=== PATIENT | female | born 1950 | race Caucasian/White ===

== ENCOUNTER → 2019-12-05 17:12 | Outpatient (CLI) | payer MEDICARE, BC, SELFPAY ==
--- NOTE | ~2019-12-05 | DEXA_ITS ---
Bone Density Report Name: Megan Montenegro Age: 69 Sex: Female Ethnicity: White Date of : 1950 Indication: postmenopausal; screening for osteoporosis; height loss; prior fracture; hysterectomy; Referring Provider: JULIA, EVE Alvarado Study: Bone densitometry was performed. Exam Date: December 05, 2019 Accession number: [id number] Bone Density: Region BMD T-score Z-score Classification AP Spine (L1-L4) 0.991 -0.5 1.6 Normal Femoral Neck (Left) 0.715 -1.2 0.6 Osteopenia Total Hip (Left) 0.834 -0.9 0.6 Normal Femoral Neck (Right) 0.687 -1.5 0.3 Osteopenia Total Hip (Right) 0.845 -0.8 0.7 Normal Total Hip Mean 0.840 -0.9 0.7 Normal World Health Organization criteria for BMD impression classify patients as: Normal (T-score at or above -1.0), Osteopenia (T-score between -1.0 and -2.5), or Osteoporosis (T-score at or below -2.5). 10-year Fracture Risk: FRAX not reported because: Prior hip or vertebral fracture Previous Exams: Region Exam Age BMD T-score BMD Change BMD Change Date g/cm2 vs Baseline vs Previous AP Spine(L1-L4) 12/05/2019 69 0.991 -0.5 0.052* 0.040 07/26/2017 67 0.951 -0.9 0.012 -0.009 12/30/2014 64 0.959 -0.8 0.021 0.021 09/29/2008 58 0.939 -1.0 Total Hip(Left) 12/05/2019 69 0.834 -0.9 -0.112* -0.059 07/26/2017 67 0.893 -0.4 -0.052 0.000 12/30/2014 64 0.893 -0.4 -0.052 -0.052 09/29/2008 58 0.946 0.0 Total Hip(Right) 12/05/2019 69 0.845 -0.8 -0.114* -0.019 07/26/2017 67 0.865 -0.6 -0.095 -0.034* 12/30/2014 64 0.898 -0.4 -0.061 -0.061 09/29/2008 58 0.959 0.1 *Denotes significance at 95% confidence level, LSC for AP Spine = 0.022 g/cm2, LSC for Total Hip = 0.027 g/cm2 Clinical Information Provided by Patient: Have had a previous hip or vertebral fracture Has had a low trauma fracture Has used the following medications: Vitamin D, Calcium Has the following medical conditions: Hysterectomy Patient maximum height was 62 Menopause Age: 50 Drinks caffeinated beverages Onset of menses at age 12 Number of children 3 Missed period for more than 6 months in a row Impression: The patient has low bone mass, based on the Right Femoral Neck T-score. The patient has risk factors, including: previous fracture. No significant bone loss
--- NOTE | ~2019-12-05 | MM_ITS ---
EXAMINATION: MM screening kari BI w joel HISTORY: Screening mammogram TECHNIQUE: Craniocaudal and mediolateral oblique 3-D tomosynthesis images were obtained and synthetic 2-D images were generated. CAD analysis was submitted and interpreted. COMPARISON: 11/08/2018, 07/26/2017, 10/09/2014 bilateral digital screening mammogram examinations BREAST PARENCHYMAL COMPOSITION: There are scattered areas of fibroglandular density. FINDINGS: Stable mild fibroglandular asymmetry. There is no evidence of reproducible suspicious mass, calcification, or architectural distortion to suggest malignancy in either breast. There has been no suspicious interval change. IMPRESSION: 1. No mammographic evidence of malignancy. 2. Recommend routine screening mammography in one year. BI-RADS Category 2: Benign finding(s). Reviewed, dictated and finalized at location A.
== END ==
PROVIDERS: Visit Provider Internal Medicine
DX: Z12.31 Encounter for screening mammogram for malignant neoplasm of breast (principal); Z78.0 Asymptomatic menopausal state; M85.89 Other specified disorders of bone density and structure, multiple sites
CPT/HCPCS: 77063; 77067; 77080

== ENCOUNTER → 2021-03-08 10:35 | Outpatient (CLI) | payer MEDICARE, BC, SELFPAY ==
--- NOTE | ~2021-03-08 | MM_ITS ---
EXAMINATION: MM screening kari BI w joel HISTORY: Screening TECHNIQUE: Craniocaudal and mediolateral oblique 3-D tomosynthesis images were obtained and synthetic 2-D images were generated. CAD analysis was submitted and interpreted. COMPARISON: Comparison to multiple prior studies sequentially, with oldest reviewed study dated 10/09. BREAST PARENCHYMAL COMPOSITION: There are scattered areas of fibroglandular density. FINDINGS: There is no evidence of suspicious mass, calcification, or architectural distortion to sugg est malignancy in either breast. There has been no suspicious interval change. IMPRESSION: 1. No mammographic evidence of malignancy. 2. Recommend routine screening mammography in one year. BI-RADS Category 1: Negative Reviewed, dictated and finalized at location A.
== END ==
PROVIDERS: PCP Internal Medicine; Visit Provider Internal Medicine
DX: Z12.31 Encounter for screening mammogram for malignant neoplasm of breast (principal)
CPT/HCPCS: 77063; 77067

== ENCOUNTER → 2022-07-29 10:26 | Outpatient (CLI) | payer MEDICARE, BC, SELFPAY ==
--- NOTE | ~2022-07-29 | DEXA_ITS ---
Bone Density Report Name: AUBRIE DIOR Age: 72 Sex: Female Ethnicity: White Date of : 1950 Indication: postmenopausal; screening for osteoporosis; height loss; prior fracture; hysterectomy; Referring Provider: JULIA, EVE Alvarado Study: Bone densitometry was performed. Exam Date: July 29, 2022 Accession number: [id number] Bone Density: Region BMD T-score Z-score Classification AP Spine (L1-L4) 0.960 -0.8 1.4 Normal Femoral Neck (Left) 0.696 -1.4 0.5 Osteopenia Total Hip (Left) 0.771 -1.4 0.2 Osteopenia Femoral Neck (Right) 0.687 -1.5 0.5 Osteopenia Total Hip (Right) 0.801 -1.2 0.5 Osteopenia Total Hip Mean 0.786 -1.3 0.4 Osteopenia World Health Organization criteria for BMD impression classify patients as: Normal (T-score at or above -1.0), Osteopenia (T-score between -1.0 and -2.5), or Osteoporosis (T-score at or below -2.5). 10-year Fracture Risk: FRAX not reported because: Prior hip or vertebral fracture Previous Exams: Region Exam Age BMD T-score BMD Change BMD Change Date g/cm2 vs Baseline vs Previous AP Spine(L1-L4) 07/29/2022 72 0.960 -0.8 0.021 -0.031 12/05/2019 69 0.991 -0.5 0.052* 0.040 07/26/2017 67 0.951 -0.9 0.012 -0.009 12/30/2014 64 0.959 -0.8 0.021 0.021 09/29/2008 58 0.939 -1.0 Total Hip(Left) 07/29/2022 72 0.771 -1.4 -0.175 -0.063 12/05/2019 69 0.834 -0.9 -0.112* -0.059 07/26/2017 67 0.893 -0.4 -0.052 0.000 12/30/2014 64 0.893 -0.4 -0.052 -0.052 09/29/2008 58 0.946 0.0 Total Hip(Right) 07/29/2022 72 0.801 -1.2 -0.158 -0.044 12/05/2019 69 0.845 -0.8 -0.114* -0.019 07/26/2017 67 0.865 -0.6 -0.095 -0.034* 12/30/2014 64 0.898 -0.4 -0.061 -0.061 09/29/2008 58 0.959 0.1 *Denotes significance at 95% confidence level, LSC for AP Spine = 0.022 g/cm2, LSC for Total Hip = 0.027 g/cm2 Clinical Information Provided by Patient: Have had a previous hip or vertebral fracture Has had a low trauma fracture Has used the following medications: Vitamin D, Calcium Has the following medical conditions: Hysterectomy Patient maximum height was 62.0 Menopause Age: 50 Drinks caffeinated beverages Onset of menses at age 12 Number of children 3 Missed period for more than 6 months in a row
--- NOTE | ~2022-07-29 | MM_ITS ---
EXAMINATION: MM screening kari BI w joel HISTORY: Screening TECHNIQUE: Craniocaudal and mediolateral oblique 3-D tomosynthesis images were obtained and synthetic 2-D images were generated. CAD analysis was submitted and interpreted. COMPARISON: Comparison to multiple prior studies sequentially, with oldest reviewed study dated 10/09. BREAST PARENCHYMAL COMPOSITION: There are scattered areas of fibroglandular density. FINDINGS: There is no evidence of suspicious mass, calcification, or architectural distortion to sugg est malignancy in either breast. There has been no suspicious interval change. IMPRESSION: 1. No mammographic evidence of malignancy. 2. Recommend routine screening mammography in one year. BI-RADS Category 1: Negative Reviewed, dictated and finalized at location A. ER ASSISTANT
== END ==
PROVIDERS: PCP Internal Medicine; Visit Provider Internal Medicine
DX: Z12.31 Encounter for screening mammogram for malignant neoplasm of breast (principal); Z78.0 Asymptomatic menopausal state; M85.89 Other specified disorders of bone density and structure, multiple sites
CPT/HCPCS: 77063; 77067; 77080

== ENCOUNTER 2022-12-16 12:51 | Emergency (ER) | payer MEDICARE, BC, SELFPAY ==
--- NOTE | ~2022-12-16 | CT_ITS ---
EXAMINATION: CT abdomen pelvis w con DATE: 12/16/2022 18:15 INDICATION: Intermittent right upper quadrant abdominal pain, nausea and vomiting. Elevated serum lip ase. TECHNIQUE: Computed tomography (CT) of the abdomen and pelvis was performed with 100 CC Omnipaque 350 intravenous contrast. Automated exposure control and iterative reconstruction technique were employe d. Exam dose: 1076.34 mGy-cm total exam DLP. COMPARISON: None. FINDINGS: Minimal dependent atelectasis of the lower lobes. Mild cardiomegaly. No pericardial or pleu ral effusion. Small sliding hiatal hernia. Multiple hepatic and splenic calcified granulomas. No hepatic, splenic, pancreatic, and adrenal space -occupying mass lesion. Spleen measures up to 12 cm vertical dimension, within upper normal range. 3.7 cm lower pole right renal cyst. 8 mm mid right renal cyst. The gallbladder is present. No bile du ct or pancreatic duct dilatation. No urinary tract calculus or hydroureteronephrosis. Normal caliber and mild atherosclerotic calcification of the abdominal aorta. No intraperitoneal or r etroperitoneal or pelvic mass lesion or adenopathy or ascites. The urinary bladder and uterus are unr emarkable. Status post appendectomy. No bowel obstruction, bowel wall thickening, pneumatosis or intraperitoneal free air is detected. Small fat-containing umbilical hernia. Moderate burst fracture deformity of L1, likely chronic. Degenerative changes of the included lower t horacic and lumbar spine including degenerative changes apophyseal joints with associated grade 1 ant erolisthesis at L4-5. 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 Normal pancreas on CT does not preclude the possibility of pancreatitis. Right renal cysts Chronic burst fracture deformity of L1 Degenerative changes of the thoracic and lumbar spine Reviewed, dictated and finalized at Location A. Reviewed, dictated and finalized at location A. 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 Normal pancreas on CT does not preclude the possib ility of pancreatitis. Right renal cysts Chronic burst fracture deformity of L1 Degenerative changes of the thoracic and lumbar spine
[2022-12-16 12:53] VITALS: BP 189/91; PULSE 96; RESP 20; TEMP 36.7; O2SAT 100
[2022-12-16 13:13] LABS: Basophils Percent Auto 0.3 % (0.2-1.2); Eosinophils Absolute Auto 0.1 K/mm3 (0-0.3); Eosinophils Percent Auto 1.4 % (0-4.4); Hematocrit 39.4 % (37.0-47.0); Hemoglobin 12.6 g/dL (12.0-15.0); Immature Granulocyte Absolute 0.04 K/mm3 (0.00-0.031); Immature Granulocyte Percent A 0.5 % (0-0.5); Lymphocytes Percent Auto 30.8 % (18.3-44.2); Mean Corpuscular Hemoglobin 30.2 pg (26-34); Mean Corpuscular Volume 94.5 fl (80-100); Mean Platelet Volume 9.6 fl (7.4-10.4); Monocytes Absolute Auto 0.6 K/mm3 (0.1-0.6); Monocytes Percent Auto 7.7 % (2.6-8.5); Neutrophils Absolute Auto 4.6 K/mm3 (1.3-6.7); Neutrophils Percent Auto 59.3 % (45.5-73.1); Platelet Count Result 270 k/mm3 (150-375); Red Blood Count 4.17 M/mm3 (4.2-5.4); Red Cell Distribution Width 13.7 % (11.5-14.5); White Blood Count 7.8 K/mm3 (4.5-10.0)
[2022-12-16 13:25] LABS: Alanine Aminotransferase 19 U/L (6-35); Albumin Level 4.9 g/dL (3.5-5.1); Alkaline Phosphatase 71 U/L (38-126); Anion Gap 12 mmol/L (8-16); Aspartate Amino Transferase 26 U/L (14-36); Bilirubin,Total 0.5 mg/dL (0.2-1.3); Blood Urea Nitrogen 27 mg/dL (7-17); Calcium 9.3 mg/dL (8.4-10.2); Carbon Dioxide 26 mmol/L (22-30); Chloride 100 mmol/L (98-107); Estimated CRCL calculation 43 ml/min; Estimated Glomerular Filt Rate 49; Glucose 134 mg/dL (65-110); Lipase 354 U/L (23-300); Potassium 3.6 mmol/L (3.4-5.0); Sodium 138 mmol/L (137-145)
[2022-12-16 13:37] LABS: Appearance Urine Turbid (Clear); Bilirubin Urine Negative (Negative); Blood Urine Negative (Negative); Color Urine Yellow (Yellow); Glucose Urine UA Negative (Negative); Ketones Urine Negative (Negative); Leukocyte Esterase Ur 1+ LEU/UL (Negative); Nitrate Urine Negative (Negative); Protein Urine Negative (Negative); Specific Grav Ur 1.011 (1.001-1.035)
[2022-12-16 14:03] LABS: RBC Urine None seen /hpf (0-2)
[2022-12-16 14:04] LABS: Bacteria Urine 2+ /hpf; Mucus Urine Moderate /lpf; Squamous Epithelial Cell Urine Few /hpf (Few)
[2022-12-16 14:05] LABS: Add Urine Microscopic? YES
--- NOTE | 2022-12-16 16:53 | ED.ABDPAIN ---
HPI - Abdominal Pain General Chief Complaint: Abdominal Pain Stated Complaint: abd pain Time Seen by Provider: 12/16/22 15:40 Source: patient Mode of arrival: ambulatory Limitations: no limitations History of Present Illness HPI narrative: Patient is a 72 y/o female who presents to the ED with c/o abnormal labs. Patient reports having intermittent right upper quadrant abdominal pain for the last several months. She states the pain occurs at random times, no known aggravating or alleviating factors to the pain. She has not required anything for the pain. She had a routine appointment with her primary care doctor today and informed him of the pain. He had outpatient blood work done and her lipase was noted to be elevated, so she was referred to the ED for further evaluation. Patient reported having episode of pain yesterday, but denied any pain today. She has had intermittent episodes of vomiting as well over the last few months, but denied any pain in the last 1 week. She does also report having urinary frequency, but denies dysuria, hematuria, diarrhea, constipation, fevers, chest pain, difficulty breathing. Related Data Allergies Allergy/AdvReac Type Severity Reaction Status Date / Time Penicillins Allergy Unknown Verified 05/04/16 13:41 Sulfa (Sulfonamide Allergy Unknown Verified 05/04/16 13:41 Antibiotics) 1 PCN 2 SULFA Allergy Unknown Uncoded 03/04/03 12:42 NKFA Allergy Unknown Uncoded 03/04/03 12:42 Review of Systems Review of Systems: CONSTITUTIONAL: Denies fever, chills, or sweats. CARDIOVASCULAR: Denies chest pain. RESPIRATORY: Denies dyspnea. GASTROINTESTINAL: See HPI. GENITOURINARY: See HPI. All systems reviewed & are unremarkable except as noted in HPI and below PMFSH Past Medical History Medical History (Updated 12/16/22 @ 19:18 by Aurelia Don PA-C) Diabetes GERD (gastroesophageal reflux disease) HLD (hyperlipidemia) HTN (hypertension) Surgical History Surgical History (Updated 12/16/22 @ 17:00 by Aurelia Don PA-C) No pertinent past surgical history Social History Social History (Updated 12/16/22 @ 17:00 by Aurelia Don PA-C) Smoking status: Never smoker Exam Narrative: GENERAL: Well appearing, obese, non-toxic, in no acute distress. HEAD: Normocephalic, atraumatic. NECK: Supple. No adenopathy, no masses. RESPIRATORY: Airway patent, respirations nonlabored. Clear to auscultation bilaterally, no rales, rhonchi, wheezing. CARDIOVASCULAR: Regular rate and rhythm without murmurs, rubs, or gallops. Radial pulses 2+ and equal bilaterally. ABDOMINAL: Soft, very minimal discomfort in epigastric/RUQ region, nondistended, no hepatosplenomegaly. Normoactive BS. MUSCULOSKELETAL: Moves all extremities. Strength/ROM intact without gross deformities. SKIN: Warm, dry, normal color. No rashes. NEURO: A&O X3. Speech clear. Cranial nerves II-XII grossly intact. Steady gait. No ataxic movements. PSYCHIATRIC: Appropriate mood and affect. Normal interaction. Course Vital Signs Vital signs: Vital Signs Temperature 98.1 F 12/16/22 12:53 Pulse Rate 96 12/16/22 12:53 Respiratory Rate 20 12/16/22 12:53 Blood Pressure 189/91 H 12/16/22 12:53 Pulse Oximetry 100 12/16/22 12:53 Oxygen Delivery Room Air 12/16/22 12:53 Temperature 98.1 F 12/16/22 12:53 Pulse Rate 79 12/16/22 19:00 Respiratory Rate 14 12/16/22 19:00 Blood Pressure 130/90 12/16/22 19:00 Pulse Oximetry 97 12/16/22 19:00 Oxygen Delivery Room Air 12/16/22 12:53 MDM - Abdominal Pain MDM Narrative Medical decision making narrative: Patient presented to ED with report of intermittent right upper quadrant abdominal pain for the last several months, intermittent vomiting - not necessarily associated with pain. Sent from PCPs office today due to elevated lipase on outpatient labs. Patient's exam unremarkable here. No significant abdominal tenderness on exam. Vitals stab
[2022-12-16 17:47] VITALS: BP 166/98; PULSE 86; RESP 12; O2SAT 98
[2022-12-16 18:18] VITALS: BP 145/82; PULSE 82; RESP 14; O2SAT 98
[2022-12-16 19:00] VITALS: BP 130/90; PULSE 79; RESP 14; O2SAT 97
[2022-12-16] MEDS: CEPHALEXIN 500 MG CAPSULE PO (19:41)
[2022-12-16 19:49] VITALS: BP 153/81; PULSE 81; RESP 16; O2SAT 97
== END 2022-12-16 19:50 | disposition home or self-care (01) ==
PROVIDERS: Emergency Medicine; Emergency Provider Physician Assistant; PCP Internal Medicine
DX: N30.00 Acute cystitis without hematuria (principal); R10.11 Right upper quadrant pain; E11.9 Type 2 diabetes mellitus without complications; E78.5 Hyperlipidemia, unspecified; I10 Essential (primary) hypertension; K21.9 Gastro-esophageal reflux disease without esophagitis; I51.7 Cardiomegaly; K44.9 Diaphragmatic hernia without obstruction or gangrene; N28.1 Cyst of kidney, acquired
CPT/HCPCS: 36415; 74177; 80053; 81001; 83690; 85025; 87086; 87088; 99284; A9270; Q9967

== ENCOUNTER → 2022-12-23 12:31 | Outpatient (CLI) | payer MEDICARE, BC, SELFPAY ==
--- NOTE | ~2022-12-23 | US_ITS ---
US right upper quadrant INDICATION: Abdominal pain PROCEDURE: Realtime right upper abdominal ultrasound. COMPARISON: No prior studies for comparison. FINDINGS: The pancreas is normal without focal mass or pancreatic ductal dilation. Liver echotexture is normal without focal mass or intrahepatic biliary dilatation. There is normal directional flow i n the portal vein. The gallbladder is normal without stones, gallbladder wall thickening or pericholecystic fluid. Comm on bile duct measures 5.6 mm. No sonographic Mccarty's sign. There is a right renal cyst measuring 3. 7 cm. IMPRESSION: 1: Unremarkable limited abdominal ultrasound. Reviewed, dictated and finalized at location B.
== END ==
PROVIDERS: PCP Internal Medicine; Visit Provider Internal Medicine
DX: R10.9 Unspecified abdominal pain (principal)
CPT/HCPCS: 76705

== ENCOUNTER 2024-04-04 15:16 | Outpatient (CLI) | payer MEDICARE, BC, SELFPAY ==
--- NOTE | ~2024-04-04 | XR_ITS ---
EXAM: XR shoulder RT min 2V DATE: 04/04/2024 15:27 HISTORY: fall 24 increasing pain since fall . COMPARISON: None available. FINDINGS: Decreased mineralization. No fracture or dislocation. No lytic or blastic lesion. Mild deg enerative change at the AC joint and glenohumeral joint. No erosion or periosteal change. Soft tissue s within normal limits. IMPRESSION: Mild polyarticular right shoulder osteoarthritis. No acute osseous finding. Reviewed, dictated and finalized at location K.
== END 2024-04-04 15:17 ==
PROVIDERS: PCP Internal Medicine; Visit Provider Internal Medicine
DX: M19.011 Primary osteoarthritis, right shoulder (principal)
CPT/HCPCS: 73030

== ENCOUNTER 2024-08-27 15:08 | Outpatient (CLI) | payer MEDICARE, BC, SELFPAY ==
--- NOTE | ~2024-08-27 | MM_ITS ---
EXAMINATION: MM screening kari BI w joel HISTORY: Screening TECHNIQUE: Craniocaudal and mediolateral oblique 3-D tomosynthesis images were obtained and synthetic 2-D images were generated. CAD analysis was submitted and interpreted. COMPARISON: Comparison to multiple prior studies sequentially, with oldest reviewed study dated 07/12. BREAST PARENCHYMAL COMPOSITION: Not dense: There are scattered areas of fibroglandular density. FINDINGS: There is no evidence of suspicious mass, calcification, or architectural distortion to sugg est malignancy in either breast. There has been no suspicious interval change. IMPRESSION: 1. No mammographic evidence of malignancy. 2. Recommend routine screening mammography in one year. BI-RADS Category 1: Negative Reviewed, dictated and finalized at location B. [facility] [employer]
== END 2024-08-27 15:09 | disposition home or self-care (01) ==
PROVIDERS: PCP Internal Medicine; Visit Provider Internal Medicine
DX: Z12.31 Encounter for screening mammogram for malignant neoplasm of breast (principal)
CPT/HCPCS: 77063; 77067

== ENCOUNTER 2024-11-19 08:43 | Outpatient (CLI) | payer MEDICARE, BC, SELFPAY ==
--- NOTE | ~2024-11-19 | DEXA_ITS ---
Bone Density Report Name: AUBRIE STEWART Age: 74 Sex: Female Ethnicity: White Date of : 1950 Indication: postmenopausal; screening for osteoporosis; prior fracture; hysterectomy; Referring Provider: JULIA, EVE Alvarado Study: Bone densitometry was performed. Exam Date: November 19, 2024 Accession number: [id number] Bone Density: Region BMD T-score Z-score Classification AP Spine(L1-L4) 0.987 -0.5 1.8 Normal Femoral Neck (Left) 0.577 -2.4 -0.4 Osteopenia Total Hip (Left) 0.872 -0.6 1.2 Normal Femoral Neck (Right) 0.607 -2.2 -0.1 Osteopenia Total Hip (Right) 0.857 -0.7 1.1 Normal Total Hip Mean 0.864 -0.7 1.2 Normal World Health Organization criteria for BMD impression classify patients as: Normal (T-score at or above -1.0), Osteopenia (T-score between -1.0 and -2.5), or Osteoporosis (T-score at or below -2.5). 10-year Fracture Risk: FRAX not reported because: Prior hip or vertebral fracture Treated for osteoporosis Clinical Information Provided by Patient: Have had a previous hip or vertebral fracture Has had a low trauma fracture Is being treated for osteoporosis Has used the following medications: Fosamax (i.e. alendronate), Vitamin D, Calcium Has the following medical conditions: Hysterectomy Patient maximum height was 62 Menopause Age: 50 No regular weight bearing exercise Drinks caffeinated beverages Onset of menses at age 12 Number of children 3 Missed period for more than 6 months in a row Impression: The patient has low bone mass, based on the Left Femoral Neck T-score. The patient has risk factors, including: previous fracture. Discussion: It is important to ask patients whether they are taking their medications and to encourage continued and appropriate compliance with their osteoporosis therapies to reduce fracture risk. It is also important to review their risk factors and encourage appropriate calcium and vitamin D intakes, exercise, fall prevention and other lifestyle measures. Follow-Up: Consider a repeat BMD and Vertebral Fracture Assessment (VFA) exam in 2 years or sooner if medically necessary, to reassess this patient's status. Reported by: DEMETRIUS on 11/19/2024 9:21:00 AM. Reviewed, dictated and finalized at manfred PAREDES
--- OUTSIDE RECORDS SUMMARY | 2024-11-19 09:07 | XMS_ITS | Continuity of Care Document ---
Author Name [facility] Organization [facility] Care Team Providers Care Slack Line Yarder Name Role Phone [facility] Unavailable Unavailable Problems Combined list of problems from Department of [facility] and [facility] facilities. It does not include entries that were removed or entered in error. Problem Status Onset Date Problem Type Date of Resolution Comments Source Diagnosis: ICD-10-CM Z74.1 Need for assistance with personal care Active Diagnosis [facility] Diagnosis: ICD-10-CM Z65.9 Problem related to unspecified psychosocial circumstances Active Diagnosis [facility] Encounters Combined list of: 1) Encounters from [facility] of [facility] facilities going backup to the last 18 months, not all [place] inpatient encounters are included; 2) Encounters from the [facility] facilities going backup to 280 months. Location Location Details Encounter Type Encounter Number Reason For Visit Attending Provider ADM Date DC Date Status Disposition Source [facility] Outpatient Encounter [id number] 07/01 [facility] PT EDUCATION NOC INDIVID [id number] Diagnos is: ICD-10- CM Z65.9 Problem related to unspeci fied psychos ocial circums SEVEN Vera 07/09 [facility] PROGRAM INTAKE ASSESSMENT [id number] Diagnos is: ICD-10- CM Z74.1 Need for assista nce with persona EMRE Sherwood 08/06 [facility] Outpatient Encounter [id number] MARISSA BELLO 08/16 [facility]
--- OUTSIDE RECORDS SUMMARY | 2024-11-19 09:07 | XMS_ITS | Clinical Summary ---
Author Organization [facility] Address [address] [place] [address] Phone Care Team Providers Care Can Washer Name Role Phone Rob Paredes MD Primary Care Provider [phone] Maribell Coyne APRN, MAIL LIST LIBRARIAN Unavailable Allergies Active Allergy Reactions Criticality Noted Date Comments Penicillins Rash 08/05/2024 Sulfate Rash 08/05/2024 Medications alendronate (FOSAMAX) 70 MG Tablet Take 70 mg by mouth every 7 days. Active atorvastatin (LIPITOR) 20 MG Tablet Take 20 mg by mouth daily. Active loratadine (Claritin) 10 MG Tablet Take 10 mg by mouth daily. Active losartan potassium-hydroc hlorothiazide (HYZAAR) 100-25 MG Tablet Take 1 Tablet by mouth daily. 12.5 tab Active metFORMIN (GLUCOPHAGE) 1000 MG Tablet Take 1,000 mg by mouth 2 times daily (with meals). Active pantoprazole (PROTONIX) 40 MG Tablet Delayed Response Take 40 mg by mouth daily. needed Active traMADol (ULTRAM) 50 MG Tablet Take 50 mg by mouth every 6 hours as needed for Headaches. Active calcium 600 MG Tablet Take 600 mg by mouth daily. Active meloxicam (MOBIC) 15 MG Tablet Take 1 Tablet by mouth daily. 06/29/2024 Active magnesium gluconate (MAGONATE) 30 MG Tablet Take 250 mg by mouth 2 times daily. Active Active Problems Problem Noted Date Diagnosed Date NAEL (obstructive sleep apnea) 08/07/2024 Social History Tobacco Use Types Packs/Day Years Used Date Smoking Tobacco: Never Smokeless Tobacco: Never Comments Unknown Sex and Gender Information Value Date Recorded Sex Assigned at Not on file Legal Sex Female 1:56 PM CDT Gender Identity Not on file Sexual Orientation Not on file Last Filed Vital Signs Vital Sign Reading Time Taken Comments Blood Pressure 126/86 08/07/2024 9:14 AM [facility] Pulse 84 08/07/2024 9:14 AM [facility] Temperature 36.6 C (97.9 F) 08/07/2024 9:14 AM [facility] Respiratory Rate 18 08/07/2024 9:14 AM [facility] Oxygen Saturation 95% 08/07/2024 9:14 AM [facility] Inhaled Oxygen Concentration - - Weight 98.9 kg (218 lb) 08/07/2024 9:14 AM [facility] Height 156.2 cm (5' 1.5 ) 08/07/2024 9:14 AM [facility] Body Mass Index 40.52 08/07/2024 9:14 AM [facility] Plan of Treatment Upcoming Encounters Date Type Department Care Team (Late st Contact Info) Description 02/05/2025 9:00 AM CDT Office Visit [facility] [place] [address] [facility] [address] [place] [address] Maribell Coyne, EMAIL CAMPAIGN SPECIALIST, MAIL LIST LIBRARIAN [address] [facility] [address] [place] [address] Health Maintenance Due Date Last Done Comments DEXA Bone Density 1950 Hepatitis C Virus (HCV) Screening 1950 TdaP Immunization 1950 Colonoscopy 1995 Colorectal Cancer Screening 1995 Cologuard 2000 Immunochemical Fecal Occult Blood 2000 Mammogram 2000 Pneumococcal Immunization (50+ years) (2 of 2 - PPSV23) 06/24/2016 06/24/2015 SARS-COV-2 Immunization ( season) 2024 05/28/2024, 07/18/2023, 07/08/2022, Additional history exists Zoster Immunization Completed 08/30/2021, Influenza Immunization Completed , 06/17/2023, 07/11/2022, Additional history exists Respiratory Syncytial Virus (RSV) Immunization (Adult) Completed 06/29/2024, 09/28/2023 Hepatitis B Immunization Aged Out No longer eligible based on patient's age to complete this topic Meningococcal Immunization (ACWY) Aged Out No longer eligible based on patient's age to complete this topic Rotavirus Immunization Aged Out No lo nger eligible based on patient's age to complete this topic Insurance MEDICARE [facility] Care Teams Can Washer Relationship Specialty Start Date End Date Rob Paredes MD PCP - General Internal Medicine 07/12/24 Maribell Coyne APRN, MAIL LIST LIBRARIAN #[address] [address] Nurse Practitioner Advanced Practice Nurse 08/14/24
== END 2024-11-19 08:44 | disposition home or self-care (01) ==
PROVIDERS: PCP Internal Medicine; Visit Provider Internal Medicine
DX: M85.89 Other specified disorders of bone density and structure, multiple sites (principal)
CPT/HCPCS: 77080